=== PATIENT | female | born 1975 | race Two or more races ===

== ENCOUNTER 2019-04-20 10:02 | Inpatient (IN) | payer OTHER ==
[~2019-04-20] VITALS: Ht 157.5 cm; Wt 78.5 kg
[2019-04-24] MEDS ORDERED: DIOVAN PO (09:46)
[2019-04-24] MEDS ORDERED: [UNRECOGNIZED DRUG - OTHER] PO (09:46)
[2019-04-24] MEDS ORDERED: ZYRTEC10 M3 PO (09:47)
[2019-04-24] MEDS ORDERED: SYMBICORT 16010.2 GM IH (09:48)
[2019-04-24] MEDS ORDERED: PROAIR HFA8.5 GM IH (09:48)
[2019-04-24] MEDS ORDERED: LUPRON DEPOT3.75 MG IM (09:49)
[2019-04-28] MEDS ORDERED: AYGESTIN5 MG (12:33)
[2019-04-28] MEDS ORDERED: FUSION PLUS CA1 EACH (12:33)
[2019-04-28] MEDS ORDERED: VALSARTAN80 MG PO (12:35)
== END 2019-04-29 10:18 | DRG 743 ==
LOC: SURG 04-28 07:00 → O/R 04-28 11:01 → OB/GYN 04-28 16:58
PROVIDERS: ADMIT Obstetrics & Gynecology
PROC: 0UT74ZZ Resection of Bilateral Fallopian Tubes, Percutaneous Endoscopic Approach (ICD-10-PCS; 2019-04-28)
PROC: 0TJB8ZZ Inspection of Bladder, Via Natural or Artificial Opening Endoscopic (ICD-10-PCS; 2019-04-28)
PROC: 0UT94ZZ Resection of Uterus, Percutaneous Endoscopic Approach (ICD-10-PCS; principal; 2019-04-28 07:00)
PROC: 0UT24ZZ Resection of Bilateral Ovaries, Percutaneous Endoscopic Approach (ICD-10-PCS; 2019-04-28 07:00)
DX: N80.0 Endometriosis of uterus (principal); N72 Inflammatory disease of cervix uteri